=== PATIENT | female | born 1955 | race Caucasian/White ===

== ENCOUNTER → 2022-12-01 07:43 | Outpatient (CLI) | payer BC, SELFPAY ==
--- NOTE | 2022-12-01 07:55 | CT_ITS ---
FINAL REPORT CLINICAL HISTORY: HEMATURIA, Rt flank pain x 2 weeks COMPARISON: None FINDINGS: Axial CT images of the abdomen and pelvis were obtained without intravenous contrast. Coronal and sagittal reformatted images were also obtained.This study was performed with techniques to keep radiation doses as low as reasonably achievable (ALARA). Individualized dose reduction techniques using automated exposure control or adjustment of mA and/or kV according to the patient's size were employed. Abdomen: There is mild bibasilar atelectasis and/or scarring. There is no evidence of renal stone or hydronephrosis. There is mild fatty infiltration of the liver. A gallstone is present in the gallbladder. The pancreas and spleen appear unremarkable. No mass or adenopathy is seen. No inflammatory process is identified. Pelvis: Images of the pelvis reveal no evidence of ureteral dilation or ureteral stone. The appendix is unremarkable in appearance. The uterus has a lobular contour, suggesting fibroids. There are several borderline sized right lower quadrant mesenteric nodes, a nonspecific finding but likely reactive. IMPRESSION: No renal or ureteral stone, or hydronephrosis. Mild fatty infiltration of the liver and a gallstone present in the gallbladder. The uterus has a lobular contour consistent with fibroids. Several borderline in size right lower quadrant mesenteric nodes, nonspecific but possibly reactive. Reviewed, Interpreted and Dictated by Tyler Henry III, MD Transcribed by Avani Joseph Authenticated and [facility]
== END ==
PROVIDERS: PCP Family Medicine; Visit Provider Physician Assistant
DX: R31.9 Hematuria, unspecified (principal)
CPT/HCPCS: 74176

== ENCOUNTER → 2022-12-14 07:54 | Outpatient (CLI) | payer BC, SELFPAY ==
--- NOTE | 2022-12-14 07:58 | US_ITS ---
FINAL REPORT TECHNIQUE: Multiple transverse and longitudinal images CLINICAL HISTORY: GALLSTONES FINDINGS: The gallbladder shows no wall thickening or distention. There is a dominant stone of the gallbladder noted which measures 16 mm and is located within the proximal gallbladder. No biliary ductal dilatation is appreciated. No fluid collections are seen. The liver shows diffuse increased echogenicity compatible with fatty change. There is no focal liver lesion. Limited portions of the right kidney are unremarkable. IMPRESSION: Uncomplicated cholelithiasis Fatty infiltration of the liver. Reviewed, Interpreted and Dictated by David Thomas MD Transcribed by Gus Gant Authenticated and [facility]
--- NOTE | 2022-12-14 07:58 | US_ITS ---
PROCEDURE: US TRANSVAGINAL CLINICAL INDICATION: FIBROIDS COMPARISON: US US ABDOMEN LIMITED from 12/14/2022 FINDINGS: Transvaginal sonographic images of the pelvis were obtained. UTERUS: 6cm x 6cmx 3cm with a combined endometrial thickness of 8.8mm. The endometrium is markedly thickened with both cystic and solid areas. There are a few small cystic areas that extend beyond the endometrium into the myometrium. Within the cervix there is a cystic and solid mass measuring 1.4 cm x 1.9 cm. There is vascular flow to this mass. There are 2 fibroids one anterior and another more posteriorly. Fibroid 1 is anterior and measures 2.6 cm x 2.8 cm x 2.7 cm. Fibroid 2 is posterior and measures 1.7 cm x 2.2 cm x 1.6 cm LEFT OVARY: Not visualized RIGHT OVARY: Not visualized There is no fluid in the cul-de-sac. IMPRESSION: 1. Anteverted uterus with 2 fibroids. Fibroid 1 measures 2.8 cm, fibroid 2 measures 2.2 cm. 2. The endometrium is thickened and has a both cystic and solid appearance. 3. Within the cervix there is a cystic and solid mass with vascular flow that measures 1.9 cm. 4. The ovaries were not visualized. 5. Suggesting gynecology consult. Dictated by: Joe Mcclellan MD 12/14/2022 11:11 Joe Mcclellan MD in [place] 12/14/2022 11:11
== END ==
PROVIDERS: PCP Family Medicine; Visit Provider Physician Assistant
DX: K80.20 Calculus of gallbladder without cholecystitis without obstruction (principal); D21.9 Benign neoplasm of connective and other soft tissue, unspecified
CPT/HCPCS: 76705; 76830

== ENCOUNTER → 2023-01-25 15:12 | Outpatient (CLI) | payer BC, SELFPAY ==
--- NOTE | 2023-01-25 15:32 | ECG_ITS ---
APPROVED REPORT Exam: Resting ECG HR:67 bpm ECG Measurements Heart Rate 67 AXES MA 181 P 61 QRSd 95 QRS 35 QT 366 T 64 QTc 381 Conclusion SINUS RHYTHM INCOMPLETE RIGHT BUNDLE BRANCH BLOCK [90+ ms QRS DURATION, TERMINAL R IN V1/V2, 40+ ms S IN I/aVL/V4/V5/V6] BORDERLINE ECG UNCONFIRMED REPORT Electronically signed by : Tenzin Hudson MD 01/25/2023 19:56:08
[2023-01-25 15:42] LABS: Basophils # 0.1 K/mm3 (0-0.2); Basophils % 0.8 % (0.1-2.0); Eosinophils # 0.3 K/mm3 (0.0-0.4); Eosinophils % 3.5 % (0.1-12.0); Hemoglobin 14.1 g/dL (12.2-16.2); Lymphocytes # 1.9 K/mm3 (0.7-4.5); Mean Corpuscular HGB Conc 32.1 g/dL (31.8-35.4); Mean Corpuscular Hemoglobin 28.7 pg (27.0-31.2); Mean Corpuscular Volume 89.2 fl (81-99); Mean Platelet Volume 7.4 fl (7.4-10.4); Monocytes # 0.5 K/mm3 (0.1-1.0); Neutrophils # 5.5 K/mm3 (1.8-7.8); Neutrophils % 66.7 % (37.0-80.0); Platelet Count 343 K/mm3 (142-424); Red Blood Count 4.93 M/mm3 (4.20-5.40); Red Cell Distribution Width 14.3 % (11.5-17.5); White Blood Count 8.3 K/mm3 (4.8-10.8)
[2023-01-25 16:05] LABS: Chloride 107 mmol/L (98-107); Sodium 144 mmol/L (136-145)
[2023-01-25 16:08] LABS: Alanine Aminotransferase 39 U/L (12-78); Albumin Level 4.2 g/dl (3.5-5.0); Albumin/Globulin Ratio 1.4 (1.1-1.8); Alkaline Phosphatase 141 U/L (38-126); Aspartate Amino Transferase 36 U/L (14-36); Bilirubin,Total 0.4 mg/dl (0.2-1.3); Blood Urea Nitrogen 19 mg/dl (7-17); Carbon Dioxide 27 mmol/L (22.0-30.0); Estimated Glomerular Filt Rate 72 ml/min (>60); GFR (African American) 87 ML/MIN (>60); Total Protein,Serum 7.2 g/dl (6.3-8.2)
[2023-01-25 16:09] LABS: Calcium 10.5 mg/dl (8.4-10.2); Glucose 100 mg/dl (74-100)
== END ==
PROVIDERS: PCP Family Medicine; Visit Provider Surgery
DX: Z01.818 Encounter for other preprocedural examination (principal); K80.20 Calculus of gallbladder without cholecystitis without obstruction
CPT/HCPCS: 36415; 80053; 85025; 93005

== ENCOUNTER 2023-01-26 06:08 | Day surgery (SDC) | payer BC, SELFPAY ==
[2023-01-24 08:17] VITALS: BMI 34.3
--- NOTE | 2023-01-25 11:04 | SUR.PREOP ---
Called pt regarding preop labs, EKG, and CXR not completed. No answer, did leave a callback number with a detailed message.
[2023-01-26] VITALS (11 sets, daily range): BP systolic 144–163; BP diastolic 69–88; PULSE 72–79; RESP 14–20; TEMP 36.7–37.2; O2SAT 93–100
--- NOTE | 2023-01-26 07:04 | EXP.ANES.CKL ---
[facility] Disclaimer: The information contained in this section may have been updated after the patient was seen, as this information can be updated by other users. Medical History Allergies Hypothyroid Irritable bowel syndrome (IBS) Sinus headache Surgical History History of amputation of toe History of colonoscopy History of elbow surgery History of knee surgery History of oral surgery Family History Sister Cancer breast Grandmother Heart attack Mother Hypertension Thyroid disorder Other Diabetes Social History (Updated 01/26/23 @ 06:46 by Alanis Zaragoza RN) Smoking Status: Never smoker alcohol intake: never substance use type: denies use current occupational status: employed Travel in the last 8 weeks: None [facility] Anesthesia Checklist Patient Identification Patient Identification: Arm Band Structural Data Admitted From: Home Planned Operative Procedure/s: Laparoscopic Cholecystectomy, Hysteroscopy, D&C Consent for Planned Operative Procedure(s) Verified: Yes Verified Documents: Surgical Consent and History and Physical NPO Status Verified Time NPO: 00:00 Additional verifications Anesthesia Reactions: No Hx Blood Transfusions: No Blood Transfusion Reaction: No Airway Assessment Mallampati Score:: Class II C-Spine Mobility Assessed: Yes TMJ Mobility Assessed: Yes Dentition: Good Dentition Neurological Assessment Level of Consciousness: Awake and Alert Anesthesia Plan Anesthesia Risk discussed: Yes Anesthesia Plan: Verified ASA Class: II Anesthesia Type: General
--- NOTE | 2023-01-26 08:41 | P.OP_ITS ---
Date of procedure: 01/26/23 Pre-op Diagnosis:: 1. Pelvic pain 2. Fibroid uterus 3. Thickened endometrial stripe Post-op Diagnosis:: 1. Pelvic pain 2. Fibroid uterus 3. Thickened endometrial stripe 4. Endometrial polyp Procedure performed:: Hysteroscopy, dilation, and MyoSure polypectomy Surgeon:: Krys Cochran DO AMBULANCE ATTENDANT:: Shaan Buckner Anesthesia: GETA Estimated blood loss (mL): 5 Operative findings:: Findings: -EUA revealed an 10-week anteverted uterus with irregular contour. Narrowed vaginal introidus. no significant prolapse or support defects noted. -Hysteroscopy revealed three endometrial polyps. two were pedunculated and filled the uterine cavity. The third was on the anterior wall with a broad base near the left ostia. Polyps were able to be removed in their entirety. Operative note:: The patient was taken back to the OR where general anesthesia was obtained.? She was placed in the dorsal lithotomy position using candycane stirrups and sterilely prepped and draped in the usual fashion.? A timeout was performed.? A weighted speculum would not fit in the patients narrowed introidus and a right angle retractor and small jamie were used to visualize this cervix, a single- tooth tenaculum was applied to the anterior lip of the cervix and the os was dilated to accomodate the myosure scope. Device set up, primed and zeroed. The hysterscope was inserted to the fundus, immediately a cavity filling polyp was noted. Images were obtained. Myosure was used to remove the three polyps described above. Total fluid deficit was less than 300mLs. Following complete removal of the polyps the MyoSure hysteroscope was removed.? The single-tooth tenaculum was removed and hemostasis was noted at the tenaculum sites.? All instruments were removed from the vagina.? All counts were correct, per nursing.? This was a combo case and at this time the sterile field was broken down and sit up for general surgery to complete their portion of the procedure. Condition: stable Disposition: PACU Specimens:: Endometrial polyp Complications:: None
--- NOTE | 2023-01-26 08:45 | P.OP_ITS ---
Date of procedure: 01/26/23 Pre-op Diagnosis:: Symptomatic cholelithiasis Post-op Diagnosis:: Chronic calculus cholecystitis Procedure performed:: Laparoscopic cholecystectomy Surgeon:: Josué Goldberg MD RADIOLOGY ORDERLY:: Shaan Buckner Anesthesia: GETA Estimated blood loss (mL): 15 Operative findings:: Severe pericholecystic fat stranding Significant infundibular thickening Operative note:: After informed consent was obtained, the patient was taken to the operating room. Her gynecologic procedure (please see separate report for detail) was completed and then she was transferred to the supine position. Her abdomen was prepped and draped in a sterile fashion. After infiltration with local anesthetic an infraumbilical incision was made. A Veress needle was placed in position. The abdomen was insufflated. A 5 mm optical trocar was placed in position. Under direct visualization, a 12 mm trocar was placed in the subxiphoid position and 2 additional 5 mm trocars were placed in the right upper quadrant. The gallbladder was elevated up and over the liver margin. The tissue around the cystic duct was carefully dissected. 3 clips were placed proximally and the duct was transected with harmonic sarah. Harmonic sarah were then utilized to dissect the gallbladder away from the liver margin with careful attention to the control of the cystic artery. The gallbladder was placed in a retrieval bag and removed through the subxiphoid trocar site. The right upper quadrant was thoroughly irrigated. No active bleeding or bile leak was noted. Fascia at the subxiphoid trocar site was reapproximated utilizing the NeoClose device. The remaining trocars were removed. All wounds were irrigated and skin was closed with 4-0 Monocryl in an interrupted/mattress fashion to facilitate hemostasis. The patient's anesthetic agents were reversed and extubation was completed prior to transfer to recovery in stable condition. Condition: stable Disposition: PACU Specimens:: Gallbladder and contents Complications:: No immediate
--- NOTE | 2023-01-26 08:56 | P.PNANES_ITS ---
[facility] Anesthesia Record Part I Anesthesia Record I Intake, IV Amount: 1,300 Hydration: Adequate Estimated blood loss (mL): 25 Urine output (mL): 0 Blood Products used (#): none Blood Pressure: 150/73 SaO2: 93 Pulse Rate: 73 Airway Patency: Patent Respiratory Rate: 16 Temperature: 98.8 F Patient is:: Drowsy and Stable Stable to PACU at:: 08:50
--- NOTE | 2023-01-26 10:58 | EXP.ANES.II ---
[facility] Anesthesia Record Part II Anesthesia Record Part II Discharge Time: 09:20 Destination: Surgical Day Care (OP Surgery) PACU nurse assessment reviewed?: Yes Patient Condition:: Good Anesthesia Complications:: None Swallowing reflex intact?: Yes Airway Patency: Patent Cyanosis?: No Blood Pressure: 144/69 SaO2: 100 Respiratory Rate: 16 Pulse Rate: 72 Temperature: 98.1 F Mental Status: Alert & Oriented Pain level:: 2 Nausea and/or vomitting:: None Intake, IV Amount: 0 Hydration: Adequate
== END 2023-01-26 10:20 | disposition home or self-care (01) ==
PROVIDERS: Obstetrics & Gynecology; PCP Physician Assistant; Visit Provider Surgery
PROC: 0FT44ZZ Resection of Gallbladder, Percutaneous Endoscopic Approach (ICD-10-PCS; CPT 47562; principal; 2023-01-26 07:30)
DX: K80.12 Calculus of gallbladder with acute and chronic cholecystitis without obstruction (principal)
CPT/HCPCS: 47562; 96374; J2405

== ENCOUNTER 2023-09-01 10:43 | Outpatient (CLI) | payer BC, SELFPAY ==
--- NOTE | 2023-09-01 10:52 | XR_ITS ---
PROCEDURE INFORMATION: Exam: XR Cervical Spine Exam date and time: 09/01/2023 10:51 AM Age: 67 years old Clinical indication: Neck pain; Additional info: Left sided neck pain TECHNIQUE: Imaging protocol: Radiologic exam of the cervical spine. Views: 4 or 5 views. COMPARISON: No relevant prior studies available. FINDINGS: Bones/joints: No acute fracture of the cervical spine. No subluxation or dislocation of the cervical spine. Intervertebral disc space narrowing C5 through C7 may represent degenerative disc disease.. Anterior osteophyte formation C5 through C7. Posterior osteophyte formation C5 through C7. Degenerative changes in the facets at multiple levels. Degenerative changes at C1/C2 Soft tissues: Unremarkable. IMPRESSION: 1. No acute fracture of the cervical spine. 2. No subluxation or dislocation of the cervical spine. 3. Intervertebral disc space narrowing C5 through C7 may represent degenerative disc disease..
== END 2023-09-01 23:59 | disposition home or self-care (01) ==
LOC: RAD 10:45
PROVIDERS: PCP Family Medicine; Visit Provider Family Medicine
DX: M53.82 Other specified dorsopathies, cervical region (principal); M54.12 Radiculopathy, cervical region
CPT/HCPCS: 72050

== ENCOUNTER 2023-12-05 07:56 | Outpatient (CLI) | payer BC, SELFPAY ==
--- NOTE | 2023-12-05 07:57 | US_ITS ---
PROCEDURE: US TRANSVAGINAL CLINICAL INDICATION: f/u on Fibroids COMPARISON: CT CT ABDOMEN PELVIS WO CON from 12/01/2022 US US TRANSVAGINAL from 12/14/2022 FINDINGS: Transvaginal sonographic images of the pelvis were obtained. UTERUS: 6.4cm x 5.2cmx 3.3cm anteverted with a combined endometrial thickness of 8.7 mm. There is a small amount of fluid within the endometrium. There continues to be a solid/cystic mass in the cervix measuring 1.6 cm x 1.1 cm x 1.7 cm. It has not shown any interval growth. There are 3 fibroids seen in the uterus. The largest fibroid, #2 has shown some interval growth. Fibroid 1. 2.4 cm x 1.6 cm. Fibroid 2. 3.4 cm x 3.1 cm x 3.6 cm Fibroid 3. 2.0 cm x 2.4 cm x 3.2 cm.. LEFT OVARY: 1.8 cmx1.3cmx1.2cm with a volume of 1.5ml. RIGHT OVARY: 1.5 cmx 1.1cmx1.0cm with a volume of 0.9ml. Both ovaries are seen and appear normal. Doppler flow to both ovaries are seen. There is no fluid in the cul-de-sac. IMPRESSION: 1. Anteverted uterus with a thickened endometrium measuring 8.7 mm. There is fluid within the endometrium. 2. There continues to be a solid/cystic mass in the cervix measuring 1.7 cm. No interval growth. 3. There are 3 separate fibroids within the uterus. The largest measures 3.6 cm and has grown in size over the last year. 4. Both ovaries are seen and appear atrophic. 5. No fluid in the cul-de-sac. Dictated by: Joe Mcclellan MD 12/05/2023 10:37 Joe Mcclellan MD in [place] 12/05/2023 10:37
== END 2023-12-05 23:59 | disposition home or self-care (01) ==
LOC: RAD 07:57
PROVIDERS: PCP Family Medicine; Visit Provider Obstetrics & Gynecology
DX: R10.2 Pelvic and perineal pain (principal); D21.9 Benign neoplasm of connective and other soft tissue, unspecified
CPT/HCPCS: 76830

== ENCOUNTER 2024-02-19 14:10 | Outpatient (CLI) | payer BC, MEDICARE, SELFPAY ==
[2024-02-19 15:04] LABS: Basophils # 0.1 K/mm3 (0-0.2); Basophils % 0.8 % (0.1-2.0); Eosinophils # 0.3 K/mm3 (0.0-0.4); Eosinophils % 3.2 % (0.1-12.0); Hematocrit 40.9 % (37.0-47.0); Hemoglobin 13.4 g/dL (12.2-16.2); Lymphocytes # 1.9 K/mm3 (0.7-4.5); Lymphocytes % 23.9 % (10-50); Mean Corpuscular HGB Conc 32.7 g/dL (31.8-35.4); Mean Corpuscular Hemoglobin 30.5 pg (27.0-31.2); Mean Corpuscular Volume 93.1 fl (81-99); Mean Platelet Volume 7.5 fl (7.4-10.4); Monocytes # 0.4 K/mm3 (0.1-1.0); Monocytes % 5.3 % (1.7-9.3); Neutrophils # 5.2 K/mm3 (1.8-7.8); Neutrophils % 66.8 % (37.0-80.0); Platelet Count 305 K/mm3 (142-424); Red Blood Count 4.39 M/mm3 (4.20-5.40); Red Cell Distribution Width 14.7 % (11.5-17.5); White Blood Count 7.8 K/mm3 (4.8-10.8)
[2024-02-19 15:24] LABS: Alanine Aminotransferase 33 U/L (12-78); Albumin Level 4.3 g/dl (3.5-5.0); Albumin/Globulin Ratio 1.8 (1.1-1.8); Alkaline Phosphatase 103 U/L (38-126); Anion Gap 6.7 mEq/L (5-15); Aspartate Amino Transferase 30 U/L (14-36); Bilirubin,Total 0.4 mg/dl (0.2-1.3); Blood Urea Nitrogen 18 mg/dl (7-17); Calcium 10.7 mg/dl (8.4-10.2); Carbon Dioxide 32 mmol/L (22.0-30.0); Chloride 106 mmol/L (98-107); Estimated Glomerular Filt Rate 62 ml/min (>60); GFR (African American) 76 ML/MIN (>60); Globulin 2.4 g/dL (1.3-3.2); Glucose 144 mg/dl (74-100); Potassium 4.7 mmoL/L (3.5-5.1); Sodium 140 mmol/L (136-145); Total Protein,Serum 6.7 g/dl (6.3-8.2)
== END 2024-02-19 23:59 | disposition home or self-care (01) ==
LOC: LAB 14:11
PROVIDERS: PCP Family Medicine; Visit Provider Obstetrics & Gynecology
DX: N80.03 Adenomyosis of the uterus (principal)
CPT/HCPCS: 36415; 80053; 85025; 86850

== ENCOUNTER 2024-02-21 06:09 | Day surgery (SDC) | payer BC, SELFPAY ==
[2024-02-19 17:06] VITALS: BMI 36.1
[2024-02-21] VITALS (13 sets, daily range): BP systolic 110–154; BP diastolic 58–90; PULSE 72–83; RESP 12–18; TEMP 36.3–43; O2SAT 90–98
[2024-02-21] MEDS: CELECOXIB 100MG CAPSULE 400 MG PO (06:44)
[2024-02-21] MEDS: GABAPENTIN 300MG CAPSULE 600 MG (06:45)
[2024-02-21] MEDS: ACETAMINOPHEN 500MG TAB 1000 MG PO (06:45)
[2024-02-21] MEDS: LACTATED RINGERS 1000ML 1,000 ML 25 ML IV (06:46)
--- NOTE | 2024-02-21 07:03 | P.PNANES_ITS ---
[facility] Disclaimer: The information contained in this section may have been updated after the patient was seen, as this information can be updated by other users. Medical History Sinus headache Irritable bowel syndrome (IBS) Hypothyroid Allergies Surgical History H/O cervical polypectomy History of laparoscopic cholecystectomy History of amputation of toe History of knee surgery History of elbow surgery History of oral surgery History of colonoscopy Family History Sister Cancer breast Grandmother Heart attack Mother Hypertension Thyroid disorder Other Diabetes Social History (Updated 02/21/24 @ 06:41 by Alanis Zaragoza RN) Smoking Status: Never smoker alcohol intake: never substance use type: denies use current occupational status: employed Travel in the last 8 weeks: None [facility] Anesthesia Checklist Patient Identification Patient Identification: Arm Band and Family Structural Data Admitted From: Home Planned Operative Procedure/s: TLH, BSO.CYSTO POSS acacia. Verified Documents: Surgical Consent and History and Physical NPO Status Verified Time NPO: 00:00 Additional verifications Patient : No Anesthesia Reactions: No Hx Blood Transfusions: No Blood Transfusion Reaction: No Cephalosporin Allergy: Yes Previous Colonoscopy: Yes Airway Assessment Mallampati Score:: Class II C-Spine Mobility Assessed: Yes TMJ Mobility Assessed: Yes Dentition: Poor Dentition Neurological Assessment Level of Consciousness: Awake, Alert, Appropriate and Follows Commands Hx Seizures: No Numbness or tingling in extremities: No Anesthesia Plan Anesthesia Risk discussed: Yes ASA Class: II Anesthesia Type: General Preoperative Comments Pre-Operative Comments: hYPOHYROID. hYPERTENSION. IBS.
[2024-02-21] MEDS: GENTAMICIN SULFATE 400 MG in 0.9 % SODIUM CHLORIDE 100 ML 100 MG IV (07:19)
[2024-02-21] MEDS: CLINDAMYCIN PHOSPHATE/D5W 900 MG/50 ML PIGGYBACK 100 MG IV (07:19)
[2024-02-21] MEDS: BUPIVACAINE 0.5% W/EPI 1:200,000 30ML VIAL 30 ML IJ (07:42)
[2024-02-21] MEDS: 0.9 % SODIUM CHLORIDE 1000ML 1,000 ML 25 ML IV (07:42)
[2024-02-21] MEDS: METHYLENE BLUE 0.5% 10ML AMPULE 50 MG IV (07:42)
[2024-02-21] MEDS: WATER FOR IRRIGATION,STERILE 3,000 ML 25 ML IR (09:19)
--- NOTE | 2024-02-21 10:11 | EXP.ANES.I ---
[facility] Anesthesia Record Part I Anesthesia Record I Intake, IV Amount: 1,400 Hydration: Adequate Estimated blood loss (mL): 100 Urine output (mL): 250 Blood Products used (#): none Blood Pressure: 114/62 SaO2: 90 Pulse Rate: 77 Airway Patency: Patent Respiratory Rate: 12 Temperature: 98.6 F Patient is:: Drowsy and Stable Stable to PACU at:: 10:02
--- NOTE | 2024-02-21 10:25 | P.OP_ITS ---
Date of procedure: 03/04/24 Pre-op Diagnosis:: 1. Leiomyomatous uterus 2. Chronic pelvic pain 3. Adenomyosis 4. Obesity, BMI: 34.5. Post-op Diagnosis:: 1. Leiomyomatous uterus 2. Chronic pelvic pain 3. Adenomyosis 4. Obesity, BMI: 34.5. Procedure performed:: 1. Total laparoscopic hysterectomy 2. Bilateral salpingo-oophorectomy 3. Adhesiolysis 4. Laparoscopic myomectomy 5. Cystoscopy Surgeon:: Krys Cochran DO Exterminator Helper Termite(s):: Mercy Lewis DO CARDIOLOGY TECH:: Duncan Lugo Anesthesia: GETEdinson Estimated blood loss (mL): 50 Clinical Note:: So is a 68-year-old G0 who presents today for above listed procedures. She has been following with me for well over a year secondary to these incidentally noted fibroids which were causing a significant amount of pelvic pain and pressure and have sent her to the emergency room. She had a hysteroscopy with dilation and curettage and pathology came back significant for endometrial polyps and adenomyosis. Patient desired definitive surgical management and was scheduled for surgery. Operative findings:: 1. On bimanual exam, uterus nonpalpable secondary to body habitus 2. On laparoscopic exam, liver, omentum and bowel grossly normal. Bilateral ovaries and fallopian tubes grossly normal. There were large fibroids that were removed laparoscopically. There were left colonic adhesions that were taken down sharply. 3. Bilateral ureters identified with peristalsis noted. No bladder defects noted. Operative note:: Discussed risks, benefits, alternatives, expectations and possible complications of surgery. All questions addressed and answered. Patient wished to proceed with surgery. Patient was wheeled back to the operating room and placed under general anesthesia without difficulty. She received 3g of Ancef and 500 mg of metronidazole. She received preoperative ERAS protocol pain management. She was placed in the dorsal lithotomy position with yellowfin stirrups. She was prepped and draped in normal sterile fashion. Beginning at the vagina, a owusu catheter was inserted into the bladder and draining clear urine prior to the start of the procedure. Weighted speculum was placed in the vaginal vault. Anterior lip of the cervix was grasped with single tooth tenaculum. Uterus sounded to 8. Visualization was extremely difficiulty secondary to a narrowed vaginal introidus. It was difficult to insert two fingers vaginally Placement of the manipulator required two surgeons for retraction and visualization. Arsalan dilators were used to dilate the cervix which was difficult secondary to being menopausal, stenotic and nulliparous. Advincula uterine manipulator was inserted into the cervix with the colpotomy cup covering the cervix. Single tooth tenaculum was removed prior to complete placement of colpotomy cup over cervix. Uterine balloon was filled with 10cc of air. Vaginal balloon was unable to be filled secondary to narrowed introidus. Speculum was removed. Attention was then turned to the abdomen. Skin just below the umbilicus was injected with 0.5% marcaine. A 11mm infraumbilical incision was made. Direct entry into the abdominal cavity was obtained with a blunt optiview trocar. A intraabdominal pressure of 6mmHg was observed and CO2 gas was insufflated to create a pneumoperitoneum to a pressure of 15mmHg. The patient was placed in Trendelenburg to facilitate moving the bowel out of the operative field. A second 11mm incision was made to the left, lateral to the rectus muscles with attention to avoid vasculature. Trocar introduced under direct visualization. This process was repeated on the right. Abdomen and pelvis was viewed in its entirety. Bilateral ureters were identified. Examination of the abdominal cavity revealed no signs of injury from entry. The uterus was enlarged and boggy suggestive of adenomyosis which had previously been confirmed with pathology. There were several large fibroids, both subserosal and intramural fibroids noted. There are also several adhesions noted, see findings above. Pictures were taken. Bowel was swept cephalad with blunt probe. There were significant colonic adhesions on the left that were required to be taken down sharply in order to sweep the bowel out of the pelvis and away from the left adnexa for later left oophorectomy. This dissection was completed sharply without any electrocautery. LigaSure was used to grasp, coagulate, and transect the left round ligament, transection was carried through the Broad ligament with attention to remain proximal to the uterine body. The left ovary in situ, for later removal. Care was taken to separate the anterior and posterior leaflet of the broad ligament. The LigaSure was used to take the anterior leaflet of the broad ligament down creating a bladder flap at the vesicouterine peritoneum. The bladder was carefully and appropriately dissected off the lower uterine segment and cervix. Attention was turned to the right gr asping the right round ligament and above procedure was completed. The anterior leaflet of the broad ligament was dissected and met in the midline from the previous vesicouterine peritoneal dissection. Bilateral uterine arteries were clamped and cut using the Ligasure. Transection was carried through the cardinal ligament bilaterally. Hemostasis was noted. There was a pedunculated large fibroid obscuring the posterior view of the colpotomy cup. Myomectomy was completed and the thyroid was placed in the posterior cul-de-sac for later removal. At the level of the colpotomy cup, the vaginal vault was incised circumferentially with the Ligasure monopolar hook. At this time we returned to the adnexa for removal of the bilateral ovaries. The left ureter was identified and noted to be distal from the operative field. The left IP was clamped coagulated and transected. The remaining attachments of the broad ligament and fallopian tubes were transected and ensured to be removed in their entirety. This process was repeated on the contralateral side. Given the difficulty of uterine manipulator placement decision was made to complete a myomectomy of the intramural fibroid at the lower uterine segment on the left. This was completed with careful dissection, traction and counter traction. I went vaginally to remove specimens. While trying to remove the uterus the uterine manipulator was completely removed. The previously dissected fibroids were removed individually and with direct visiualization and careful attention not to leave any behind. The bilateral ovaries were removed vag inally. Each specimen was passed off the operative field to be sent to pathology. The uterine cervix was grasped with a ring forcep and removed vaginally. All specimens were passed off the operative field to be sent to pathology for further evaluation. A glove with a lap sponge inside was placed vaginally to maintain pneumoperitoneum. The vaginal vault was closed with the Endostitch V-Lock barbed stitch. Pelvis was irrigated. Intraabdominal pressure was decreased to 5 mm Hg. Hemostasis was noted. Surgicel powder was applied over bilateral pedicles and closed vaginal vault. RLQ and LLQ trocars were removed under direct laparoscopic visualization. Pneumoperitoneum was released into the atmosphere. Infraumbilical trocar was removed under direct laparoscopic visualization to ensure no herniation of bowel or omentum. Skin incisions were reapproximated with 4-0 Monocryl. Dermabond was applied over closed skin incisions. Cystoscopy: The patient was removed from Trendelenburg. A 70degree cystoscope was inserted into the urethra. The bladder was distended with sterile water. The gilmore of the bladder were inspected and noted to be intact, free of any sutures, gross masses or abnormal vasculature. Air bubble was noted at the dome of the bladder. Ureteral flow was immediately noted bilaterally. Sponge, instrument and needle counts were correct x3, per nursing. Patient was awakened from anesthesia and taken to recovery in stable condition. Condition: stable Disposition: floor Specimens:: Uterus, cervix, fibroids, bilateral fallopian tubes and ovaries Complications:: None
--- NOTE | 2024-02-21 12:03 | EXP.ANES.II ---
[facility] Anesthesia Record Part II Anesthesia Record Part II Discharge Time: 10:36 Destination: Obstetric PACU nurse assessment reviewed?: Yes Patient Condition:: Good Anesthesia Complications:: None Swallowing reflex intact?: Yes Airway Patency: Patent Cyanosis?: No Blood Pressure: 136/90 SaO2: 94 Respiratory Rate: 16 Pulse Rate: 78 Temperature: 97.3 F Mental Status: Alert & Oriented Pain level:: 0 Nausea and/or vomitting:: None Intake, IV Amount: 0 Hydration: Adequate
--- NOTE | 2024-02-21 13:41 | SUR.PHASEII ---
1105: Pt up into chair and taken to BR per Anne-Marie Adams RN. Pt stayed in bathroom for 20 min. Voided multiple times. No bleeding noted. Pt reports no pain. 1125: Pt in bay getting dressed per family members and Anne-Marie Adams RN. 1137: Pt taken out to car alert and oriented x3 per wheelchair. Helped into car per this RN. Pt states, I'm not hurting. Family advised to bring pt back if lethargic/trouble breathing or if pt begins bleeding more than a pad an hour.
== END 2024-02-21 11:38 | disposition home or self-care (01) ==
PROVIDERS: PCP Family Medicine; Visit Provider Obstetrics & Gynecology
PROC: 0UT94ZZ Resection of Uterus, Percutaneous Endoscopic Approach (ICD-10-PCS; CPT 53080; principal; 2024-02-21 07:30)
DX: R10.2 Pelvic and perineal pain (principal); N80.03 Adenomyosis of the uterus; E66.9 Obesity, unspecified; Z68.34 Body mass index [BMI] 34.0-34.9, adult
CPT/HCPCS: 53080; 58571; 96374; J3490; J1100; J1580; J2250; J2405; J3010; J7030; J7120

== ENCOUNTER 2024-06-16 09:21 | Outpatient (CLI) | payer BC, SELFPAY ==
--- NOTE | 2024-06-16 09:25 | XR_ITS ---
FINAL REPORT TECHNIQUE: Bone densitometry calculations of the lumbar spine and left hip were obtained. CLINICAL HISTORY: SCREENING COMPARISON: None FINDINGS: Using L1-4, the bone mineral density of the spine is 1.446 g/cm2, corresponding to T-score of 3.6. Using the left hip, the bone mineral density of the femoral neck is 0.769 g/cm2, corresponding to a T-score of -0.7. NOTE: T-score: Standard deviation compared with peak bone mass of young adult mean. *Following the recommendations of the International Society of Bone densitometry, classification of hip BMD is based on the lower of two T-scores; total hip or femoral neck. IMPRESSION: Normal bone mineral density of the lumbar spine and hip. Reviewed, Interpreted and Dictated by Noah Horvath MD Transcribed by Avani Joseph Authenticated and [facility][1]
== END 2024-06-16 23:59 | disposition home or self-care (01) ==
LOC: RAD 09:21
PROVIDERS: PCP Family Medicine; Visit Provider Family Medicine
DX: Z13.820 Encounter for screening for osteoporosis (principal); Z78.0 Asymptomatic menopausal state
CPT/HCPCS: 77080

== ENCOUNTER 2024-10-15 15:15 | Outpatient (CLI) | payer BC, SELFPAY ==
--- NOTE | 2024-10-15 | XR_ITS ---
FINAL REPORT CLINICAL HISTORY: Right knee pain COMPARISON: None FINDINGS: 3 views of the right knee were obtained. There is no acute fracture or dislocation. Mild to moderate hypertrophic changes at the medial and lateral joint margins. Moderate osteophytes are seen along the undersurface of the patella. There is no acute soft tissue abnormality. IMPRESSION: Moderate osteoarthritis without acute bony abnormality. Reviewed, Interpreted and Dictated by Noah Horvath MD Transcribed by Aylin Lake Authenticated and [facility]
--- NOTE | 2024-10-15 | XR_ITS ---
FINAL REPORT CLINICAL HISTORY: Left knee pain COMPARISON: None FINDINGS: LEFT KNEE 3 views of the left knee were obtained. There is no acute fracture or dislocation. There is moderate to advanced narrowing of the medial and lateral compartment joint spaces. Prominent osteophytes are seen along the arches of the patella. Soft tissues are unremarkable. IMPRESSION: Moderately advanced osteoarthritis without acute bony abnormality. Reviewed, Interpreted and Dictated by Noah Horvath MD Transcribed by Aylin Lake Authenticated and [facility]
== END 2024-10-15 23:59 | disposition home or self-care (01) ==
PROVIDERS: PCP Family Medicine; Visit Provider Family Medicine
DX: M17.0 Bilateral primary osteoarthritis of knee (principal)
CPT/HCPCS: 73562